=== PATIENT | female | born 1955 | race Caucasian/White ===

== ENCOUNTER 2024-11-06 19:04 | Inpatient (IN) | payer MEDICAID ==
[~2024-11-06] VITALS: Ht 142.2 cm; Wt 81.0 kg
[2024-11-06] MEDS: FAMOTIDINE 20 MG/2 ML VIAL IVP ONE
[2024-11-06] MEDS: KETOROLAC TROMETHAMINE 30 MG/ML VIAL IVP ONE
[2024-11-06] MEDS ORDERED: IBUP-1506 PO (19:23)
[2024-11-06 19:49] LABS: BASOPHILS % (AUTO) 0.2 % (0.0-2.0); EOSINOPHILS % (AUTO) 0.8 % (1.0-6.0); HEMATOCRIT 41.6 % (36-46); HEMOGLOBIN 13.9 g/dL (12.0-16.0); LYMPHOCYTES # (AUTO) 0.8 K/uL (1.0-4.8); LYMPHOCYTES % (AUTO) 11.5 % (22.0-44.0); MEAN CORPUSCULAR HGB CONC 33.5 G/dL (31.0-37.0); MEAN CORPUSCULAR VOLUME 93 fL (80-100); MONOCYTES # (AUTO) 0.4 K/uL (0.1-1.0); MONOCYTES % (AUTO) 5.5 % (2.0-9.0); NEUTROPHILS # (AUTO) 5.4 K/uL (1.8-7.7); PLATELET COUNT (AUTO) 166 K/uL (150-450); RED BLOOD CELL COUNT(AUTO) 4.49 MIL/uL (4.00-5.20); RED CELL DISTRIBUTION WIDTH 14.2 % (11.5-14.5); WHITE BLOOD COUNT (AUTO) 6.6 K/uL (4.5-11.0)
[2024-11-06 20:01] LABS: ANION GAP 7 mmol/L (8-16); CALCIUM, TOTAL 9.4 mg/dL (8.8-10.5); CARBON DIOXIDE 28 mmol/L (22-29); CHLORIDE 104 mmol/L (98-107); CREATININE 0.88 mg/dL (0.60-1.30); GLOMERULAR FILTR. RATE CALC > 60 mL/min (>60); GLUCOSE,RANDOM 95 mg/dL (70-110); POTASSIUM 3.7 mmol/L (3.5-5.1); SODIUM SERUM 139 mmol/L (136-145); UREA NITROGEN, BLOOD 14 mg/dL (7-18)
[2024-11-06 20:06] LABS: TROPONIN I-HIGH SENSITIVITY 5 ng/L (<51)
[2024-11-06 20:21] LABS: APPEARANCE,URINE CLEAR (CLEAR); COLOR,URINE DARK YELLOW (YELLOW); GLUCOSE, URINE (UA) NEGATIVE (NEGATIVE); KETONES,URINE TRACE mg/dL (NEGATIVE); LEUKOCYTE ESTERASE ,URINE MODERATE (NEGATIVE); NITRATE,URINE NEGATIVE (NEGATIVE); OCCULT BLOOD,URINE NEGATIVE (NEGATIVE); PROTEIN,URINE 30-70 mg/dL (NEGATIVE); SPECIFIC GRAVITIY, URINE 1.036 (1.003-1.030)
[2024-11-06 20:24] LABS: BILIRUBIN,URINE MODERATE (NEGATIVE)
[2024-11-06 20:30] LABS: BACTERIA,URINE Few /HPF (None Seen); SQUAMOUS EPITHELIAL CELL,UR Few /LPF (None Seen)
[2024-11-06 22:39] LABS: ALBUMIN 3.5 g/dL (3.4-5.0); BILIRUBIN,DIRECT 3.1 mg/dL (0.00-0.20); BILIRUBIN,TOTAL 4.5 mg/dL (0.1-1.0); TOTAL PROTEIN, SERUM 7.4 g/dL (6.4-8.2)
[2024-11-06] MEDS ORDERED: SODIUM CHLORIDE 0.9% 100 ML ONE (23:08)
[2024-11-06] MEDS ORDERED: IOHEXOL 350 MG/ML 100 ML VIAL ONE (23:08)
[2024-11-07] MEDS: SODIUM CHLORIDE 0.9% 1,000 ML IV ONE ×3 (00:08→11:42)
[2024-11-07] MEDS: CefTRIAXone 1 GM/DEXTROSE 50 ML IV ONE (02:30)
[2024-11-07] MEDS: MORPHINE SULFATE 2 MG/ML SYRINGE IVP ONE (03:19)
[2024-11-07] MEDS: AMPICILLIN SODIUM/SULBACTAM NA 3 GM in SODIUM CHLORIDE 0.9% 100 ML IV ONE (08:12)
[2024-11-07] MEDS ORDERED: IOTHALAMATE MEGLUMINE 600 MG/ML 50 ML VIAL IVP ONE (08:41)
[2024-11-07] MEDS ORDERED: SODIUM CHLORIDE 0.9% 1,000 ML ONE (10:41)
[2024-11-07] MEDS ORDERED: HYDROmorphone HCL 2 MG/ML SYRINGE IVP PRN ×3 (11:45)
[2024-11-07] MEDS ORDERED: TRANEXAMIC ACID 1,000 MG/10 ML VIAL ONE (12:00)
[2024-11-07] MEDS ORDERED: ONDANSETRON HCL 4 MG/2 ML VIAL ONE ×2 (12:00)
[2024-11-07] MEDS ORDERED: METOCLOPRAMIDE HCL 5 MG/ML 2 ML VIAL ONE (12:00)
[2024-11-07] MEDS ORDERED: GLYCOPYRROLATE 0.2 MG/ML VIAL ONE (12:00)
[2024-11-07] MEDS ORDERED: DEXAMETHASONE SOD PHOS 4 MG/ML VIAL ONE ×2 (12:00)
[2024-11-07] MEDS ORDERED: ROCURONIUM BROMIDE 10 MG/ML 5 ML VIAL ONE ×2 (12:00)
[2024-11-07] MEDS ORDERED: PROPOFOL 1% 20 ML VIAL IVP ONE ×2 (12:00)
[2024-11-07] MEDS ORDERED: LIDOCAINE/PF 2% 5 ML SYRINGE IVP ONE ×2 (12:00)
[2024-11-07] MEDS ORDERED: MIDAZOLAM HCL 2 MG/2 ML VIAL ONE (12:00)
[2024-11-07] MEDS ORDERED: SUGAMMADEX SODIUM 200 MG/2 ML VIAL IVP ONE ×2 (12:00)
[2024-11-07] MEDS ORDERED: CeFAZolin SODIUM 1 GM VIAL ONE (12:00)
[2024-11-07] MEDS ORDERED: PIPERACILLIN/TAZO 3.375 GM/D5W 50 ML IV SCH ×2 (14:00)
[2024-11-07 14:41] VITALS: BP 110/57; PULSE 93; RESP 18; TEMP 98.8; O2SAT 95
[2024-11-07] MEDS ORDERED: SODIUM CHLORIDE 0.9% 500 ML IV ONE (15:16)
[2024-11-07] MEDS: PIPERACILLIN/TAZO 3.375 GM/D5W 50 ML IV SCH (15:27)
[2024-11-07] MEDS: ACETAMINOPHEN 325 MG TABLET PO PRN (19:32)
[2024-11-07] MEDS: DOCUSATE SODIUM 100 MG CAPSULE PO SCH (20:27)
[2024-11-07 20:32] VITALS: BP 91/57; PULSE 69; RESP 18; TEMP 97.9; O2SAT 95
[2024-11-08 04:45] VITALS: BP 108/58; PULSE 58; RESP 18; TEMP 98.1; O2SAT 95
[2024-11-08] MEDS: PANTOPRAZOLE SODIUM 40 MG/VIAL IVP SCH (08:07)
[2024-11-08] MEDS ORDERED: RINGERS SOLUTION,LACTATED 1,000 ML IV ONE (09:12)
[2024-11-08] MEDS: ETHYL ALCOHOL 62% ANTISEPTIC NASAL SANITIZER 0.6 ML AMPUL NASAL ONE (09:12)
[2024-11-08] MEDS: CHLORHEXIDINE GLUCONATE 2% TOWELETTE [2'S/6'S] TP ONE (11:49)
[2024-11-08] MEDS: RINGERS SOLUTION,LACTATED 1,000 ML IV ONE (11:49)
[2024-11-08] MEDS ORDERED: MIDAZOLAM HCL 2 MG/2 ML VIAL ONE (12:00)
[2024-11-08] MEDS ORDERED: FentaNYL CITRATE PF 100 MCG/2 ML VIAL ONE (12:00)
[2024-11-08] MEDS ORDERED: BUPIVACAINE 0.25%/EPI 1:200,000/PF 30 ML VIAL ONE (12:36)
[2024-11-08] MEDS ORDERED: TRANEXAMIC ACID 1,000 MG/10 ML VIAL ONE (14:08)
[2024-11-08] MEDS: BUPIVACAINE 0.25%/EPI 1:200,000/PF 30 ML VIAL ONE (14:37)
[2024-11-08] MEDS ORDERED: MORPHINE SULFATE 2 MG/ML SYRINGE IVP PRN (14:45)
[2024-11-08] MEDS ORDERED: HYDROCODONE/ACETAMINOPHEN 5-325 MG TABLET PO PRN (14:45)
[2024-11-08] MEDS: HYDROmorphone HCL 2 MG/ML SYRINGE IVP PRN ×2 (15:00→15:08)
[2024-11-08] MEDS ORDERED: HYDROmorphone HCL 2 MG/ML SYRINGE IVP PRN ×2 (15:00)
[2024-11-08 16:17] VITALS: BP 115/60; PULSE 79; RESP 20; TEMP 98.1; O2SAT 94
[2024-11-08 16:19] VITALS: BP 115/60; PULSE 79; RESP 20; TEMP 98.1; O2SAT 94
[2024-11-08] MEDS: ONDANSETRON HCL 4 MG/2 ML VIAL IVP PRN (18:41)
[2024-11-08 19:29] VITALS: BP 122/60; PULSE 64; RESP 18; TEMP 97.5; O2SAT 95
[2024-11-09 04:57] VITALS: BP 123/62; PULSE 58; RESP 18; TEMP 98.6; O2SAT 97
[2024-11-09 07:09] LABS: BASOPHILS % (AUTO) 0.2 % (0.0-2.0); EOSINOPHILS % (AUTO) 0.2 % (1.0-6.0); HEMOGLOBIN 12.9 g/dL (12.0-16.0); LYMPHOCYTES # (AUTO) 1.5 K/uL (1.0-4.8); LYMPHOCYTES % (AUTO) 24.9 % (22.0-44.0); MEAN CORPUSCULAR HEMOGLOBIN 30.8 pg (26.0-34.0); MEAN CORPUSCULAR HGB CONC 33.1 G/dL (31.0-37.0); MEAN CORPUSCULAR VOLUME 93 fL (80-100); MONOCYTES # (AUTO) 0.6 K/uL (0.1-1.0); MONOCYTES % (AUTO) 10.3 % (2.0-9.0); NEUTROPHILS # (AUTO) 3.8 K/uL (1.8-7.7); NEUTROPHILS % (AUTO) 64.4 % (40.0-70.0); PLATELET COUNT (AUTO) 157 K/uL (150-450); RED BLOOD CELL COUNT(AUTO) 4.19 MIL/uL (4.00-5.20); RED CELL DISTRIBUTION WIDTH 14.2 % (11.5-14.5); WHITE BLOOD COUNT (AUTO) 5.9 K/uL (4.5-11.0)
[2024-11-09 07:25] LABS: ALANINE AMINOTRANSFERASE 290 U/L (12-78); ALBUMIN 2.5 g/dL (3.4-5.0); ALKALINE PHOSPHATASE 270 U/L (46-116); ANION GAP 5 mmol/L (8-16); ASPARTATE AMINOTRANSFERASE 147 U/L (15-37); BILIRUBIN,TOTAL 0.9 mg/dL (0.1-1.0); CALCIUM, TOTAL 8.8 mg/dL (8.8-10.5); CARBON DIOXIDE 29 mmol/L (22-29); CHLORIDE 105 mmol/L (98-107); CREATININE 0.78 mg/dL (0.60-1.30); GLOMERULAR FILTR. RATE CALC > 60 mL/min (>60); GLUCOSE,RANDOM 96 mg/dL (70-110); POTASSIUM 4.3 mmol/L (3.5-5.1); SODIUM SERUM 139 mmol/L (136-145); TOTAL PROTEIN, SERUM 6.3 g/dL (6.4-8.2); UREA NITROGEN, BLOOD 11 mg/dL (7-18)
[2024-11-09 07:58] VITALS: BP 129/66; PULSE 60; RESP 18; TEMP 98.2; O2SAT 95
[2024-11-09] MEDS: MORPHINE SULFATE 2 MG/ML SYRINGE IVP PRN (08:13)
[2024-11-09 15:43] VITALS: BP 130/62; PULSE 84; RESP 18; TEMP 98.4; O2SAT 96
== END 2024-11-09 16:04 | disposition home or self-care (01) | DRG 263 ==
LOC: EMS 19:04 → EDH 11-07 07:34 → 6S 11-07 14:17
PROVIDERS: ADMIT Internal Medicine; ATTEND Internal Medicine
PROC: BF131ZZ Fluoroscopy of Gallbladder and Bile Ducts using Low Osmolar Contrast (ICD-10-PCS; 2024-11-07)
PROC: 0FC98ZZ Extirpation of Matter from Common Bile Duct, Via Natural or Artificial Opening Endoscopic (ICD-10-PCS; principal; 2024-11-07 13:00)
PROC: 0FT44ZZ Resection of Gallbladder, Percutaneous Endoscopic Approach (ICD-10-PCS; 2024-11-08)
DX: K80.65 Calculus of gallbladder and bile duct with chronic cholecystitis with obstruction (principal); E66.01 Morbid (severe) obesity due to excess calories; K82.8 Other specified diseases of gallbladder; F17.210 Nicotine dependence, cigarettes, uncomplicated; I10 Essential (primary) hypertension; Z68.41 Body mass index [BMI] 40.0-44.9, adult
CPT/HCPCS: 74177; 76705; 80048; 80053; 80076; 81001; 83690; 84484; 85025; 87081; 87086; 88304; 93005; 96374; 96375; 99285; G0238; J0295; J0690; J0696; J1100; J1171; J1885; J2250; J2270; J2405; J2470; J2543; J2704; J2765; J3010; J3490; J7030; J7040; J7050; J7120; Q9961